=== PATIENT | male | born 1985 | race Two or more races ===

== ENCOUNTER 2019-01-20 06:55 | Outpatient (CLI) | payer BC | END 2019-01-20 06:56 | disposition EMS.NT | LOC: EMS 06:55 | PROVIDERS: ATTEND Surgery | DX: S01.01XA Laceration without foreign body of scalp, initial encounter (principal); W22.8XXA Striking against or struck by other objects, initial encounter; Y92.69 Other specified industrial and construction area as the place of occurrence of the external cause; Y99.0 Civilian activity done for income or pay ==

== ENCOUNTER 2019-01-20 07:34 | Emergency (ER) | payer OTHER, BC ==
[2019-01-20 07:48] VITALS: BP 109/68
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
== END 2019-01-20 08:12 | disposition home or self-care (01) ==
LOC: ED 07:34
DX: S01.01XA Laceration without foreign body of scalp, initial encounter (principal); W20.8XXA Other cause of strike by thrown, projected or falling object, initial encounter; Y99.0 Civilian activity done for income or pay; F17.200 Nicotine dependence, unspecified, uncomplicated
CPT/HCPCS: 1040M; 12002; 99282

== ENCOUNTER 2021-12-09 08:00 | Outpatient (CLI) | payer BC ==
--- NOTE | 2021-12-09 16:35 | XRAY Report ---
PROCEDURE: Finger(s) LT INDICATIONS: THUMB FX TECHNIQUE: AP hand, 2 views of the first finger(s) acquired. COMPARISON: Plain films dated 11/04/2021 FINDINGS: Bones: Longitudinal fracture line traversing the distal phalanx of the first digit is present, as bef ore. Soft tissues: No suspicious soft tissue calcifications. IMPRESSION: No significant change in first digit fracture. Reviewed by: Brandon Eubanks MD on 12/09/2021 4:34 PM PDT Approved by: Brandon Eubanks MD on 12/09/2021 4:34 PM PDT Station ID: [id number]
== END 2021-12-09 23:59 | disposition home or self-care (01) ==
LOC: DI.WOS 08:00
PROVIDERS: ATTEND Physician Assistant Surgical
DX: S62.525D Nondisplaced fracture of distal phalanx of left thumb, subsequent encounter for fracture with routine healing (principal)

== ENCOUNTER 2022-01-06 08:00 | Outpatient (CLI) | payer BC ==
--- NOTE | 2022-01-06 17:39 | XRAY Report ---
PROCEDURE: Finger(s) LT INDICATIONS: LEFT THUMB FX TECHNIQUE: AP hand, 2 views of the first finger(s) acquired. COMPARISON: 12/09/2021, 11/11/2021, 11/04/2021 FINDINGS: Bones: Longitudinal fracture involving first distal phalanx extending to phalangeal tuft is again see n with persistent up to 2 mm diastases at fracture site. No new fracture or dislocation is seen. No s uspicious bony lesions. Soft tissues: No suspicious soft tissue calcifications. IMPRESSION: Stable appearance of first distal phalangeal fracture as above. No new fracture or dislocation. Reviewed by: Harshad West MD on 01/06/2022 5:38 PM PDT Approved by: Harshad West MD on 01/06/2022 5:38 PM PDT Station ID: [id number]
== END 2022-01-06 23:59 | disposition home or self-care (01) ==
LOC: DI.WOS 08:00
PROVIDERS: ATTEND Physician Assistant Surgical
DX: S62.525D Nondisplaced fracture of distal phalanx of left thumb, subsequent encounter for fracture with routine healing (principal)

== ENCOUNTER 2022-05-11 10:23 | Emergency (ER) | payer OTHER ==
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
--- NOTE | 2022-05-11 11:52 | XRAY Report ---
PROCEDURE: Hand 3 View RT INDICATIONS: Trauma TECHNIQUE: 3 views of the hand(s) acquired. COMPARISON: None FINDINGS: Bones: There is an oblique fracture of the proximal shaft of the fourth metacarpal with mild overridi ng. No other fractures or dislocations noted. No suspicious bony lesions. Soft tissues: No suspicious soft tissue calcifications. IMPRESSION: Proximal fourth metacarpal shaft fracture with mild overriding. Reviewed by: Ahmet Paul MD on 05/11/2022 11:50 AM PST Approved by: Ahmet Paul MD on 05/11/2022 11:50 AM PST Station ID: [id number]
[2022-05-11 11:58] VITALS: BP 126/84
== END 2022-05-11 11:58 | disposition home or self-care (01) ==
LOC: ED 10:23
DX: S62.324A Displaced fracture of shaft of fourth metacarpal bone, right hand, initial encounter for closed fracture (principal); W20.8XXA Other cause of strike by thrown, projected or falling object, initial encounter; Y99.0 Civilian activity done for income or pay; F17.200 Nicotine dependence, unspecified, uncomplicated
CPT/HCPCS: 1040M; 99283

== ENCOUNTER 2022-05-18 15:34 | Outpatient (CLI) | payer OTHER, BC ==
--- NOTE | 2022-05-18 10:05 | XRAY Report ---
PROCEDURE: Hand 3 View RT INDICATIONS: RIGHT HAND FRACTURE TECHNIQUE: 3 views of the hand(s) acquired. COMPARISON: 05/11/2022 FINDINGS: Bones: Oblique fracture through fourth metacarpal shaft is again seen. Minimal dorsal and medial disp lacement at fracture site is again noted. No new fracture or dislocation. No suspicious bony lesions. Soft tissues: No suspicious soft tissue calcifications. IMPRESSION: Stable appearing minimally displaced fourth metacarpal shaft fracture unchanged from prior study. No new fracture or dislocation. Reviewed by: Harshad West MD on 05/18/2022 10:03 AM PST Approved by: Harshad West MD on 05/18/2022 10:03 AM PST Station ID: [id number]
== END 2022-05-18 15:43 | disposition home or self-care (01) ==
LOC: DI.WOS 15:34
PROVIDERS: ATTEND Orthopaedic Surgery
DX: S62.394A Other fracture of fourth metacarpal bone, right hand, initial encounter for closed fracture (principal)

== ENCOUNTER 2022-05-25 13:31 | Outpatient (CLI) | payer OTHER ==
--- NOTE | 2022-05-25 11:34 | XRAY Report ---
PROCEDURE: Hand 3 View RT INDICATIONS: RIGHT 4TH MC FRACTURE TECHNIQUE: 3 views of the hand(s) acquired. COMPARISON: 05/11/2022, 05/18/2022 FINDINGS: Bones: Unchanged alignment and appearance of the area sterile fracture through the fourth metacarpal shaft. Soft tissues: No suspicious soft tissue calcifications. IMPRESSION: No interval healing. Reviewed by: Anand Christie on 05/25/2022 11:32 AM [facility] Approved by: Anand Christie on 05/25/2022 11:32 AM [facility] Station ID: [id number]
== END 2022-05-25 13:32 | disposition home or self-care (01) ==
LOC: DI.WOS 13:31
PROVIDERS: ATTEND Orthopaedic Surgery
DX: S62.324A Displaced fracture of shaft of fourth metacarpal bone, right hand, initial encounter for closed fracture (principal)

== ENCOUNTER 2022-06-22 11:00 | Outpatient (CLI) | payer OTHER, BC ==
--- NOTE | 2022-06-22 12:43 | XRAY Report ---
PROCEDURE: Hand 3 View RT INDICATIONS: RIGHT HAND FRACTURE TECHNIQUE: 3 views of the hand(s) acquired. COMPARISON: 05/25/2022 FINDINGS: Bones: Oblique fracture of the midshaft of the fourth metacarpal with no angulation and minimal displ acement.. No suspicious bony lesions. Soft tissues: No suspicious soft tissue calcifications. IMPRESSION: Healing fracture of the midshaft of the right fourth metacarpal. Reviewed by: Thai Eugene on 06/22/2022 12:42 PM PDT Approved by: Thai Eugene on 06/22/2022 12:42 PM PDT Station ID: [id number]
== END 2022-06-22 23:59 | disposition home or self-care (01) ==
LOC: DI.WOS 11:00
PROVIDERS: ATTEND Orthopaedic Surgery
DX: S62.324D Displaced fracture of shaft of fourth metacarpal bone, right hand, subsequent encounter for fracture with routine healing (principal)